=== PATIENT | male | born 1985 | race Caucasian/White ===

== ENCOUNTER 2020-04-04 12:55 | Emergency (ER) | payer SELFPAY ==
[2020-04-04] MEDS ORDERED: Ondansetron 4 MG/2 ML SDV IVPUSH ONE (13:22)
[2020-04-04] MEDS ORDERED: HYDROmorphone 1 MG/ML Syringe IVPUSH STA (13:22)
[2020-04-04] MEDS ORDERED: Tamsulosin 0.4 MG Cap.ER PO STA (13:22)
[2020-04-04] MEDS ORDERED: Sodium Chloride 0.9% 1,000 ML IV SCH (13:30)
--- NOTE | 2020-04-04 13:42 | EDM.PDOC ---
<Sam Qiu - Last Filed: 04/04/20 13:37> ED HPI GENERAL MEDICAL PROBLEM - General Chief Complaint: Abdominal Pain Stated Complaint: ABDOMINAL PAIN Time Seen by Provider: 04/04/20 13:22 Source of Information: Reports: Patient History Limitations: Reports: No Limitations - History of Present Illness INITIAL COMMENTS - FREE TEXT/NARRATIVE: Adal is a 35 YO male that presents to the ED with abdominal pain. Pain began suddenly at approximately 0800. He describes it as a dull aching sensation located below the umbilicus with radiation towards the left flank. Pain is made better with movement and worsens with laying still. Rated at a 10 out of 10. Associated complaint of feeling of incomplete voiding, nausea, and diaphoresis. Denies fever, chills, vomiting, radiation toward groin, pain during urination, increased frequency, decreased amount at time of void, blood in urine. History of one kidney stone in the past. States this sensation feels different when compared to that incident. Has taken acetaminophen with no relief. Onset: Sudden Onset Date: 04/04/20 Onset Time: 08:00 Duration: Hour(s): Location: Reports: Abdomen Quality: Reports: Ache Improves with: Reports: Movement Worsens with: Reports: Rest Associated Symptoms: Reports: Diaphoresis, Nausea/Vomiting Treatments LAP REGULATOR: Reports: Acetaminophen Left Lower Abdomen Pain Score (Numeric/FACES): 10 - Related Data Allergies Allergy/AdvReac Type Severity Reaction Status Date / Time No Known Allergies Allergy Verified 04/04/20 13:10 Home Meds: Home Meds Acetaminophen/HYDROcodone [[place] 325-5 MG] 1 tab PO Q6H PRN #12 tablet 04/04/20 [Rx] Tamsulosin [Tamsulosin 24 Hr] 0.4 mg PO DAILY #2 cap.er 04/04/20 [Rx] Past Medical History Genitourinary History: Reports: Renal Calculus Social & Family History - Family History Family Medical History: Noncontributory - Tobacco Use Smoking Status *Q: Never Smoker - Caffeine Use Caffeine Use: Reports: None - Recreational Drug Use Recreational Drug Use: No ED ROS GENERAL - Review of Systems Review Of Systems: See Below Constitutional: Reports: Diaphoresis. Denies: Fever, Chills Respiratory: Reports: Shortness of Breath Cardiovascular: Reports: Chest Pain GI/Abdominal: Reports: Abdominal Pain, Nausea. Denies: Constipation, Diarrhea, Vomiting : Reports: Flank Pain, Urinary Retention. Denies: Dysuria, Frequency, Hematuria, Urgency ED EXAM, RENAL/ - Physical Exam Exam: See Below Exam Limited By: No Limitations General Appearance: Alert, Mild Distress (Uncomfortable lying still. ) Head: Atraumatic, Normocephalic Respiratory/Chest: No Respiratory Distress, Lungs Clear, Normal Breath Sounds, No Accessory Muscle Use, Chest Non-Tender Cardiovascular: Regular Rate, Rhythm, No Gallop, No Murmur, No Rub GI/Abdominal: Normal Bowel Sounds, Soft, No Distention, Tender (Tender in LLQ) Back Exam: CVA Tenderness (L). No: CVA Tenderness (R) Neurological: Alert, Oriented, Normal Cognition Skin Exam: Warm, Dry, Normal Color Departure - Departure Disposition: Home, Self-Care 01 Clinical Impression: Kidney stone on left side - Discharge Information Instructions: Dietary Guidelines to Help Prevent Kidney Stones, Kidney Stones, [id number] Referrals: PCP,None [Primary Care Provider] - Forms: ED Department Discharge Additional Instructions: You were evaluated in the ER today for your L flank pain. Your urinalysis did demonstrate some blood in urine, which is suggestive of a kidney stone at this time. A CT was done at this ER visit, this demonstrated a small kidney stone on the left side of your body. You have been given a strainer, please use every time you use the bathroom to make sure that the kidney stone has passed. Recommend that you increase your oral fluid intake to try to help the stone pass. You have been given a few tablets of pain medication, please take as prescribed. These medications are highly addictive, please take as few as you need to. These medications also may cause constipation, please take a stool softener like MiraLAX while taking these medications. Do not drive while taking these medications. You were given a few tablets of Andrade-max to help facilitate the stone's passage. Please take 1 tab daily for the next few days if you are still having symptoms. You were given a dose of this at this ER visit, so you would not need to take this medication until tomorrow morning. If your pain is not much better in a week's time, you may need to follow up with your primary care physician, for a possible urology referral. Please return to the ED if your symptoms change or worsen. Sepsis Event Note (ED) - Evaluation Sepsis Screening Result: No Definite Risk <Betzy Esqueda - Last Filed: 04/04/20 14:29> Course - Vital Signs Last Recorded V/S: Last Vital Signs Temp 96.9 F 04/04/20 13:06 Pulse 95 04/04/20 13:06 Resp 18 04/04/20 13:06 BP 160/107 H 04/04/20 13:06 Pulse Ox 97 04/04/20 13:06 - Orders/Labs/Meds Orders: Active Orders 24 hr Category Date Time Status Strain Urine [RC] ASDIRECTED Care 04/04/20 13:22 Ordered Sodium Chloride 0.9% [Normal Saline] 1,000 ml Med 04/04/20 13:30 Ordered IV ASDIRECTED Medication Orders Sodium Chloride (Normal Saline) 1,000 mls @ 999 mls/hr IV ASDIRECTED STEPHY Last Admin: 04/04/20 13:32 Dose: 999 mls/hr Documented by: DILIP Labs: Laboratory Tests 04/04/20 Range/Units 13:25 Urine Color Yellow (Yellow) Urine Appearance Clear (Clear) Urine pH 6.0 (5.0-8.0) Ur Specific [place] > or = 1.030 (1.005-1.030) Urine Protein Negative (Negative) Urine Glucose (UA) Negative (Negative) Urine Ketones Negative (Negative) Urine Occult Blood 3+ H (Negative) Urine Nitrite Negative (Negative) Urine Bilirubin Negative (Negative) Urine Urobilinogen 0.2 (0.2-1.0) Ur Leukocyte Esterase Negative (Negative) Urine RBC 30-40 H (0-5) /hpf Urine WBC 0-5 (0-5) /hpf Ur Squamous Epith Cells 0-5 (0-5) /hpf Urine Bacteria Not seen (FEW) /hpf Urine Mucus Not seen (FEW) /hpf Meds: Medications Generic Name Dose Route Start Last Admin Trade Name Freq PRN Reason Stop Dose Admin Sodium Chloride 1,000 mls @ 999 mls/hr 04/04/20 13:30 04/04/20 13:32 Normal Saline IV 999 mls/hr ASDIRECTED STEPHY Administration Discontinued Medications Generic Name Dose Route Start Last Admin Trade Name Freq PRN Reason Stop Dose Admin Hydromorphone HCl 1 mg 04/04/20 13:22 04/04/20 13:30 Dilaudid IVPUSH 04/04/20 13:23 1 mg ONETIME STA Administration Ondansetron HCl 4 mg 04/04/20 13:22 04/04/20 13:28 Zofran IVPUSH 04/04/20 13:23 4 mg ONETIME ONE Administration Tamsulosin HCl 0.4 mg 04/04/20 13:22 04/04/20 13:36 Flomax PO 04/04/20 13:23 0.4 mg ONETIME STA Administration - Re-Assessments/Exams Free Text/Narrative Re-Assessment/Exam: 04/04/20 14:21 I have read and reviewed the student's HPI and examined the patient and agree with JARRETT Andrade-student. Have ordered urinalysis, IV fluids, noncontrast abdomen pelvis CT, 1 mg Dilaudid, a dose of Flomax for initial management. Official radiology report demonstrates left ureter is mildly prominent in size down to the UVJ, no ureteral stone is seen by our radiologists, which raises the possibility of a recent stone passage. I did overlook the CTs with Dr. Mayfield, and he does believe he found a 3.8 mm stone within the distal UVJ, that would be causing some the issues. Nonetheless we will send the patient home with some pain medication, dietary recommendations and a few doses of Flomax for the next couple days. Patient is okay with this plan at this time. Departure - Departure Time of Disposition: 14:22 Condition: Good - Discharge Information *PRESCRIPTION DRUG MONITORING PROGRAM REVIEWED*: Yes *COPY OF PRESCRIPTION DRUG MONITORING REPORT IN PATIENT [place]ITCH[place]: No Sepsis Event Note (ED) - Focused Exam Vital Signs: Vital Signs Temp Pulse Resp BP Pulse Ox 04/04/20 13:06 96.9 F 95 18 160/107 H 97 - My Orders Last 24 Hours: My Active Orders 04/04/20 13:22 Strain Urine [RC] ASDIRECTED 04/04/20 13:30 Sodium Chloride 0.9% [Normal Saline] 1,000 ml IV ASDIRECTED - Assessment/Plan Last 24 Hours: My Active Orders 04/04/20 13:22 Strain Urine [RC] ASDIRECTED 04/04/20 13:30 Sodium Chloride 0.9% [Normal Saline] 1,000 ml IV ASDIRECTED
--- NOTE | 2020-04-04 13:57 | CT ---
CT abdomen and pelvis Technique: Multiple axial sections were obtained from above the dome of the diaphragm inferiorly through the pubic symphysis. Intravenous and oral contrast not utilized. Study has been performed as a ureteral stone protocol. Findings: Small nonobstructing stone is noted inferiorly within the left kidney. Small nonobstructing stone is noted within the mid right kidney. Left ureter is mildly prominent down to the bladder. No obstructing calculi are seen. Findings raised the question of recently passed stone. Other findings: Visualized lung bases show nothing acute. Noncontrast appearance of the liver shows no discrete abnormality. Spleen appears within normal limits. Adrenal glands show no nodule. Pancreas shows no discrete abnormality. Aorta shows no aneurysm. Gallbladder contains no calcified gallstones. No retroperitoneal adenopathy or mesenteric abnormalities are seen. Appendix is seen which is normal in size. No pelvic mass or adenopathy is appreciated. Bone window settings were reviewed. No acute osseous finding is appreciated. Impression: 1. Small nonobstructing calculus within each kidney. 2. Left ureter is mildly prominent in size down to the UVJ. No ureteral stone is seen. Findings raised the possibility of change from recent stone passage. Please correlate if patient's symptoms have improved. 3. No other acute abnormality is seen. Diagnostic code #3 This report was dictated in MDT
== END 2020-04-04 14:55 | disposition home or self-care (01) ==
LOC: JD.ED 12:55
DX: N20.0 Calculus of kidney (principal)
CPT/HCPCS: 74176; 81001; 96361; 96374; 96375; 99284; A9270; J1170; J2405; J7030; 99283